=== PATIENT | female | born 1930 | race Caucasian/White ===

== ENCOUNTER → 2017-09-04 | Outpatient (CLI) | payer MEDICARE, OTHER ==
[~2017-09-04] MED LIST: ACET325 PO; ALBU90OI INH; ALPR.25 PO; Acetaminophen-1 EAC1 PO; BETAGAN RIGHTEYE; BISA10S PR; CALCA500CH PO; CEFP200 PO; CEPH500 PO; CIPR250 PO; CIPR500 PO; CLAR500 PO; CODACE30 PO; Calcium Carbon500 MG PO; DEXA2 PO; DEXL60CA3 PO; DIPATR PO; Dok Plus Table1 EACH PO; ESCI10 PO; ESOM20 PO; FLUC100 PO; FURO40 PO; GABA100 PO; HYDACE5 PO; HYDR1TAB94 PO; Hair, Skin & N1 EACH PO; LATA.005SO RIGHTEYE; LEVFLO250 PO; LEVO.5OPSO RIGHTEYE; LIDO5TP TOP; LISHYD2025; LISHYD2025 PO; LISI20 PO; LOPE2C PO; MECL12.5 PO; METPRE4 PO; METR500 PO; MULVIT PO; Milk Of Ma400 MG/5 M PO; NITR100 PO; NITR100CA PO; Norco 5-325 Ta1 EACH PO; OMEP20ER; OMEPRAZOLE MAGN20 MG PO; ONDA4ODT MM; OXYC10TA19; OXYC10TA19 PO; Omeprazole20 M1 PO; PARO10 PO; PARO20 PO; PHENA200 PO; POTCHL20ER PO; Percocet 5-3251 EACH PO; Prilosec40 MG PO; RXONDA4ODT MM; Restoril30 MG PO; Roxicodone5 MG PO; SENN187 PO; SPACE CHAMBER1 EACH PO; SPIR25 PO; SUCR1 PO; Senna Laxative8.6 MG PO; TEMA30 PO; TYLECOD3 PO; WARF1 PO; WARF2 PO; ZORVOLEX35 MG PO; Zofran Odt4 MG SL; [UNRECOGNIZED DRUG - REMARK]
[2017-09-04 14:54] LABS: Appearance, Urine Cloudy (Clear); Bilirubin, Urine Neg (Neg); Blood, Urine Neg (Neg); Color, Urine Yellow (P-Yellow); Glucose Qualitative, Urine Neg (Neg); Ketones, Urine Neg (Neg); Leukocyte Esterase, Urine Neg (Neg); Nitrite, Urine Neg (Neg); Protein, Urine Neg (Neg); Urobilinogen, Urine NORM (Normal)
[2017-09-04 15:34] LABS: Amorphous Heavy (0-Heavy); Bacteria Rare /hpf; Red Blood Cells, Urine 0-2 /hpf (0-2); Squamous Epithelial Cells Rare /hpf (Few); White Blood Cells, Urine 0-2 /hpf (0-5)
== END | disposition home or self-care (01) ==
LOC: LAB 14:12
PROVIDERS: Family Medicine
DX: N39.0 Urinary tract infection, site not specified (principal)
CPT/HCPCS: 81001